=== PATIENT | female | born 1950 | race Caucasian/White ===

== ENCOUNTER 2021-12-09 21:08 | Emergency (ER) | payer MEDICARE ==
[2021-12-09] MEDS ORDERED: Sodium Chloride 0.9% 1000 ML 1,000 ML IV STA (21:15)
[2021-12-09] MEDS ORDERED: Sodium Chloride 0.9% 1000 ML 1,000 ML ONE (21:21)
[2021-12-09] MEDS ORDERED: solu-CORTEF 100MG IV ONE (21:25)
[2021-12-09] MEDS ORDERED: solu-CORTEF 100MG ONE (21:31)
[2021-12-09 21:59] LABS: Absolute Neutrophil Ct (ANC) 3.71 x10^3/uL (1.4-6.9); Basophil (Absolute #) 0.04 x10^3/uL (0-0.4); Eosinophil % 2.5 % (0.00-5.0); Eosinophil (Absolute #) 0.18 x10^3/uL (0-0.5); Hemoglobin 13.6 g/dL (12.0-16.0); Lymphocyte (Absolute #) 2.25 x10^3/uL (1.0-4.6); Mean Corpuscular Hemoglobin 31.3 pg (26-32); Mean Platelet Volume 11.8 fL (7.5-11.0); Monocyte (Absolute #) 1.07 x10^3/uL (0.0-1.3); Monocytes % 14.7 % (0.0-12.0); Neutrophil % 51.1 % (36.0-66.0); Platelet Count 157 x10^3/uL (150-450); Red Blood Count 4.35 x10^6/uL (4.1-5.4); Red Cell Distribution Width 12.5 % (11.5-14.0); White Blood Count 7.3 x10^3/uL (4.0-10.5)
[2021-12-09 22:06] LABS: Appearance CLEAR (CLEAR); Bilirubin MODERATE (NEGATIVE); Dipstick done @ ? MAIN LAB; Glucose NEGATIVE (NEGATIVE); Ketones >=160 (NEGATIVE); Nitrite NEGATIVE (NEGATIVE); Protein,Urine Dip 30 (Negative); RBC SMALL Ery/ul (0-5); Specific Gravity 1.025 (1.005-1.025); Urobilinogen 0.2 mg/dL (0-1)
[2021-12-09 22:10] LABS: Bacteria RARE /HPF (NEGATIVE); RBC 0-2 /HPF (0-2); Urine Cultured Indicated? YES
--- NOTE | 2021-12-09 22:14 | ERPHSYRPT ---
- History of Present Illness Source: patient, EMS Exam Limitations: clinical condition Patient Subjective Stated Complaint: per ems, pt has been vomiting. family told ems that pt was her normal self on tuesday but has been increasingly lethargic since. pt has not been taking her meds d/t vomiting and family says she gets like this when she does not take her steriods Triage Nursing Assessment: pt arrive per ambulance and transfers to [facility] with assist of 3. pt opens eyes to voice and answers some questions. pt oriented to person, time. respirations nonalbored with lungs cta. skin warm and dry. pupils equal and reactive. bilat upper and lower ext strength equal. pt poor historian at this time. no family with pt. Physician History: Lethargic WF in mild distress w N/V x3 days. She has a good airway and is oriented x3 but slow to respond. Pt unable to give a Hx. She received 500ml NS bolus/4mg IV Zofran in route. Pt w a good BP/Heart rate. She denies any pain, and no focal weakness observed. Timing/Duration: other (3 days) Severity: moderate Modifying Factors: Improves With: nothing Allergies/Adverse Reactions: pain medicines Allergy (Uncoded 12/09/21 22:00) pt unable to answer at this time, just states allergy to "pain medicines" Home Medications: Gabapentin [Neurontin ] 300 mg PO HS 12/09/21 [History] Hydrocortisone [Cortef] 15 mg PO DAILY 12/09/21 [History] Levothyroxine Sodium 50 Mcg [Synthroid 50 Mcg] 50 mcg PO DAILY 12/09/21 [History] Nebivolol HCl 5 MG [Bystolic 5 MG] 10 mg PO DAILY 12/09/21 [History] Omeprazole 40 mg PO DAILY 12/09/21 [History] Hx Tetanus, Diphtheria Vaccination/Date Given: (uk) Immunizations Up to Date: (uk) Travel Risk - International Travel Have you traveled outside of the country in past 3 weeks: No - Coronavirus Screening Are you exhibiting any of the following symptoms?: Yes Symptoms: Cough: New Onset, Vomiting/Diarrhea, Headaches/Body Aches/Fatigue Close contact with a COVID-19 positive Pt in past 14-21 Days: No - Vaccine Status Have you recieved a Covid-19 vaccination: No (unknown) Physical Director: Unknown - Vaccination Dates Dates if Unknown: uk - Review of Systems All Other Systems: Unable due to condition - Past Medical History Neurological History: No Pertinent History Cardiac History: Hypertension Respiratory History: No Pertinent History Endocrine Medical History: Dedrick's Disease, Hypothyroidism Musculoskeletal History: Arthritis - Social History Smoking Status: Unknown if ever smoked - Nursing Vital Signs Nursing Vital Signs: Initial Vital Signs Temperature 99.4 F 12/09/21 21:10 Pulse Rate 97 H 12/09/21 21:10 Respiratory Rate 18 12/09/21 21:10 Blood Pressure 173/67 12/09/21 21:10 O2 Sat by Pulse Oximetry 99 12/09/21 21:10 Pain Scale Pain Intensity 0 - Physical Exam SpO2: 99 - Course Nursing assessment & vital signs reviewed: Yes EKG Interpreted by Me: RATE (NSR/Rate97/Prolonged QT-QTc/Nonspecific ST-Twave changes) - CT Exams Head CT Interpretation: Tele-radiologist Report (CT head neg) Abdomen/Pelvis CT Interpretation: Tele-radiologist Report (NAD) Chest CT Interpretation: Tele-radiologist Report (Reactive adenopathy/CAD/Possible pneumonitis) Ordered Tests: Active Orders 24 hr Category Date Time Status EKG-ER Only STAT Care 12/09/21 21:15 Completed ABDOMEN AND PELVIS W/0 CONTRAS [CT] Stat Exams 12/09/21 21:49 Taken CHEST 1 VIEW (PORTABLE) Stat Exams 12/09/21 21:16 Taken CHEST WITHOUT CONTRAST [CT] Stat Exams 12/09/21 21:48 Taken HEAD WITHOUT CONTRAST [CT] Stat Exams 12/09/21 21:47 Taken ABG [ARTERIAL BLOOD GASES] Stat Lab 12/09/21 22:30 Completed AMYLASE Stat Lab 12/09/21 21:54 Completed CBC W DIFF Stat Lab 12/09/21 21:54 Completed CMP Stat Lab 12/09/21 21:54 Completed CULTURE,URINE Stat Lab 12/09/21 21:56 Received ETHYL ALCOHOL Stat Lab 12/09/21 21:54 Completed LIPASE Stat Lab 12/09/21 21:54 Completed Lactic Acid Stat Lab 12/09/21 21:43 Completed MAGNESIUM Stat Lab 12/09/21 21:54 Completed NT PRO BNP Stat Lab 12/09/21 21:54 Completed POCT GLUCOSE Stat Lab 12/09/21 22:45 Completed POCT GLUCOSE Stat Lab 12/09/21 22:47 Completed POCT GLUCOSE Stat Lab 12/09/21 23:18 Completed PROTIME WITH INR Stat Lab 12/09/21 21:54 Completed PTT Stat Lab 12/09/21 21:54 Completed T4 (Thyroxine) Stat Lab 12/09/21 21:36 Completed TROPONIN Q4H Lab 12/09/21 22:03 Completed TSH [TSH, 3RD Generation] Stat Lab 12/09/21 21:36 Completed UA W/RFX CULTURE Stat Lab 12/09/21 21:56 Completed Urine Triage Profile Stat Lab 12/09/21 21:56 Completed Medication Summary Discontinued Medications Generic Name Dose Route Start Last Admin Trade Name Freq PRN Reason Stop Dose Admin Dextrose 50 ml 12/09/21 22:48 12/09/21 22:50 Dextrose 50%-Water 50 Ml Abboject IV 12/09/21 22:49 50 ml STAT ONE Administration Dextrose Confirm 12/09/21 22:49 Dextrose 50%-Water 50 Ml Abboject Administered 12/09/21 22:50 Dose 50 ml IV .STK-MED ONE Hydrocortisone Sodium Succinate 100 mg 12/09/21 21:25 12/09/21 21:33 Hydrocortisone Sod Succinate 100 Mg/Vial Vial IV 12/09/21 21:26 100 mg STAT ONE Administration Hydrocortisone Sodium Succinate Confirm 12/09/21 21:31 Hydrocortisone Sod Succinate 100 Mg/Vial Vial Administered 12/09/21 21:32 Dose 100 mg .ROUTE .STK-MED ONE Sodium Chloride 1,000 mls @ 999 mls/hr 12/09/21 21:15 12/09/21 21:26 Sodium Chloride 0.9% 1000 Ml IV 12/09/21 22:15 999 mls/hr .Q1H1M STA Administration Sodium Chloride Confirm 12/09/21 21:21 Sodium Chloride 0.9% 1000 Ml Administered 12/09/21 21:22 Dose 1,000 mls @ ud .ROUTE .STK-MED ONE Dextrose/Sodium Chloride 1,000 mls @ 100 mls/hr 12/09/21 23:45 Dextrose 5% -0.45 Nacl 1000 Ml IV 01/08/22 23:44 .Q10H GIAN Potassium Chloride/Dextrose/Sod Cl 1,000 mls @ 100 mls/hr 12/09/21 23:45 12/09/21 23:57 D5w/0.45ns W/ 40meq Kcl 1000 Ml IV 01/08/22 23:44 100 mls/hr .Q10H GIAN Administration Potassium Chloride/Dextrose/Sod Cl Confirm 12/09/21 23:45 D5w/0.45ns W/ 40meq Kcl 1000 Ml Administered 12/09/21 23:46 Dose 1,000 mls @ ud IV .STK-MED ONE Lab/Rad Data: Laboratory Result Diagrams 12/09/21 21:54 12/09/21 21:54 Laboratory Results 12/09/21 12/09/21 12/09/21 Range/Units 23:18 22:47 22:45 WBC (4.0-10.5) x10^3/uL RBC (4.1-5.4) x10^6/uL Hgb (12.0-16.0) g/dL Hct (35-47) % MCV (78-100) fL MCH (26-32) pg MCHC (32-36) g/dL RDW (11.5-14.0) % Plt Count (150-450) x10^3/uL MPV (7.5-11.0) fL Gran % (36.0-66.0) % Immature Gran % (Auto) (0.00-0.4) % Nucleat RBC Rel Count (0.00-0.1) % Eos # (Auto) (0-0.5) x10^3/uL Immature Gran # (Auto) (0.00-0.03) x10^3u/L Absolute Lymphs (auto) (1.0-4.6) x10^3/uL Absolute Monos (auto) (0.0-1.3) x10^3/uL Absolute Nucleated RBC (0.00-0.01) x10^3u/L Lymphocytes % (24.0-44.0) % Monocytes % (0.0-12.0) % Eosinophils % (0.00-5.0) % Basophils % (0.0-0.4) % Absolute Granulocytes (1.4-6.9) x10^3/uL Basophils # (0-0.4) x10^3/uL PT (9.4-12.5) SECONDS INR (0.8-3.0) APTT (25.1-36.5) SECONDS Puncture Site pCO2 (35-45) mmHg pO2 (75-100) mmHg Base Excess (-2.0-2.0) O2 Saturation (94-100) g/dF ABG pH (7.35-7.45) ABG HCO3 (22-28) ABG O2 Sat (Measured) (95-100) % [place] Test A-a Gradient a/A Ratio Hemoglobin Carboxyhemoglobin (0.0-6.9) % THgb Methemoglobin (1.4-1.5) % Temperature C POC O2 Flow Rate % Sodium (137-145) mmol/L Potassium (3.5-5.1) mmol/L Chloride (98-107) mmol/L Carbon Dioxide (22-30) mmol/L Anion Gap (5-15) MEQ/L BUN (7-17) mg/dL Creatinine (0.52-1.04) mg/dL Estimated GFR ML/MIN Glucose (74-106) mg/dL POC Glucometer 197 H 58 L 58 L (74 to 106) mg/dL Lactic Acid (0.4-2.0) Calcium (8.4-10.2) mg/dL Magnesium (1.6-2.3) mg/dL Total Bilirubin (0.2-1.3) mg/dL AST (14-36) U/L ALT (0-35) U/L Alkaline Phosphatase (38-126) U/L Troponin I (0.000-0.034) ng/mL NT-Pro-B Natriuret Pep (0-900) pg/mL Serum Total Protein (6.3-8.2) g/dL Albumin (3.5-5.0) g/dL Amylase (30-110) U/L Lipase (23-300) U/L Thyroxine (T4) (5.53-10.96) ug/dL TSH 3rd Generation (0.47-4.68) mIU/L Urinalys Dipstick Clnc Urine Color (YELLOW) Urine Appearance (CLEAR) Urine pH (5-6) Ur Specific [place] (1.005-1.025) POC Urine Protein Conf (Negative) Urine Ketones (NEGATIVE) Urine Nitrite (NEGATIVE) Urine Bilirubin (NEGATIVE) Urine Urobilinogen (0-1) mg/dL Urine Leukocytes (NEGATIVE) Urine WBC (Auto) (0-5) /HPF Urine RBC (Auto) (0-2) /HPF U Epithel Cells (Auto) Urine Bacteria (Auto) (NEGATIVE) /HPF Urine RBC (0-5) Bassem/ul Ur Culture Indicated? Urine Glucose (NEGATIVE) mg/dL Urine Opiates Level (NEGATIVE) Ur Methadone (NEGATIVE) Urine Barbiturates (NEGATIVE) Ur Phencyclidine (PCP) (NEGATIVE) Urine Amphetamine (NEGATIVE) U Benzodiazepine Level (NEGATIVE) Urine Cocaine (NEGATIVE) Urine Marijuana (THC) (NEGATIVE) Ethyl Alcohol (0-10) mg/dL Influenza Type A Ag (NEGATIVE) Influenza Type B Ag (NEGATIVE) RSV (PCR) (Negative) SARS-CoV-2 (PCR) (NEGATIVE) 12/09/21 12/09/21 12/09/21 Range/Units 22:30 22:03 21:56 WBC (4.0-10.5) x10^3/uL RBC (4.1-5.4) x10^6/uL Hgb (12.0-16.0) g/dL Hct (35-47) % MCV (78-100) fL MCH (26-32) pg MCHC (32-36) g/dL RDW (11.5-14.0) % Plt Count (150-450) x10^3/uL MPV (7.5-11.0) fL Gran % (36.0-66.0) % Immature Gran % (Auto) (0.00-0.4) % Nucleat RBC Rel Count (0.00-0.1) % Eos # (Auto) (0-0.5) x10^3/uL Immature Gran # (Auto) (0.00-0.03) x10^3u/L Absolute Lymphs (auto) (1.0-4.6) x10^3/uL Absolute Monos (auto) (0.0-1.3) x10^3/uL Absolute Nucleated RBC (0.00-0.01) x10^3u/L Lymphocytes % (24.0-44.0) % Monocytes % (0.0-12.0) % Eosinophils % (0.00-5.0) % Basophils % (0.0-0.4) % Absolute Granulocytes (1.4-6.9) x10^3/uL Basophils # (0-0.4) x10^3/uL PT (9.4-12.5) SECONDS INR (0.8-3.0) APTT (25.1-36.5) SECONDS Puncture Site LEFT RADIAL pCO2 27 L (35-45) mmHg pO2 83 (75-100) mmHg Base Excess -11.0 L (-2.0-2.0) O2 Saturation 94.0 (94-100) g/dF ABG pH 7.31 L (7.35-7.45) ABG HCO3 13.6 L* (22-28) ABG O2 Sat (Measured) 97.1 (95-100) % [place] Test YES A-a Gradient 33 a/A Ratio 0.72 Hemoglobin 14.4 Carboxyhemoglobin 2.2 (0.0-6.9) % THgb Methemoglobin 1.0 L (1.4-1.5) % Temperature 37.0 C POC O2 Flow Rate 21 % Sodium (137-145) mmol/L Potassium 3.1 L (3.5-5.1) mmol/L Chloride (98-107) mmol/L Carbon Dioxide (22-30) mmol/L Anion Gap (5-15) MEQ/L BUN (7-17) mg/dL Creatinine (0.52-1.04) mg/dL Estimated GFR ML/MIN Glucose (74-106) mg/dL POC Glucometer (74 to 106) mg/dL Lactic Acid (0.4-2.0) Calcium (8.4-10.2) mg/dL Magnesium (1.6-2.3) mg/dL Total Bilirubin (0.2-1.3) mg/dL AST (14-36) U/L ALT (0-35) U/L Alkaline Phosphatase (38-126) U/L Troponin I 0.017 (0.000-0.034) ng/mL NT-Pro-B Natriuret Pep (0-900) pg/mL Serum Total Protein (6.3-8.2) g/dL Albumin (3.5-5.0) g/dL Amylase (30-110) U/L Lipase (23-300) U/L Thyroxine (T4) (5.53-10.96) ug/dL TSH 3rd Generation (0.47-4.68) mIU/L Urinalys Dipstick Clnc Urine Color (YELLOW) Urine Appearance (CLEAR) Urine pH (5-6) Ur Specific [place] (1.005-1.025) POC Urine Protein Conf (Negative) Urine Ketones (NEGATIVE) Urine Nitrite (NEGATIVE) Urine Bilirubin (NEGATIVE) Urine Urobilinogen (0-1) mg/dL Urine Leukocytes (NEGATIVE) Urine WBC (Auto) (0-5) /HPF Urine RBC (Auto) (0-2) /HPF U Epithel Cells (Auto) Urine Bacteria (Auto) (NEGATIVE) /HPF Urine RBC (0-5) Bassem/ul Ur Culture Indicated? Urine Glucose (NEGATIVE) mg/dL Urine Opiates Level NEGATIVE (NEGATIVE) Ur Methadone NEGATIVE (NEGATIVE) Urine Barbiturates NEGATIVE (NEGATIVE) Ur Phencyclidine (PCP) NEGATIVE (NEGATIVE) Urine Amphetamine NEGATIVE (NEGATIVE) U Benzodiazepine Level NEGATIVE (NEGATIVE) Urine Cocaine NEGATIVE (NEGATIVE) Urine Marijuana (THC) NEGATIVE (NEGATIVE) Ethyl Alcohol (0-10) mg/dL Influenza Type A Ag (NEGATIVE) Influenza Type B Ag (NEGATIVE) RSV (PCR) (Negative) SARS-CoV-2 (PCR) (NEGATIVE) 12/09/21 12/09/21 12/09/21 Range/Units 21:56 21:54 21:54 WBC (4.0-10.5) x10^3/uL RBC (4.1-5.4) x10^6/uL Hgb (12.0-16.0) g/dL Hct (35-47) % MCV (78-100) fL MCH (26-32) pg MCHC (32-36) g/dL RDW (11.5-14.0) % Plt Count (150-450) x10^3/uL MPV (7.5-11.0) fL Gran % (36.0-66.0) % Immature Gran % (Auto) (0.00-0.4) % Nucleat RBC Rel Count (0.00-0.1) % Eos # (Auto) (0-0.5) x10^3/uL Immature Gran # (Auto) (0.00-0.03) x10^3u/L Absolute Lymphs (auto) (1.0-4.6) x10^3/uL Absolute Monos (auto) (0.0-1.3) x10^3/uL Absolute Nucleated RBC (0.00-0.01) x10^3u/L Lymphocytes % (24.0-44.0) % Monocytes % (0.0-12.0) % Eosinophils % (0.00-5.0) % Basophils % (0.0-0.4) % Absolute Granulocytes (1.4-6.9) x10^3/uL Basophils # (0-0.4) x10^3/uL PT 11.6 (9.4-12.5) SECONDS INR 1.10 (0.8-3.0) APTT 28.8 (25.1-36.5) SECONDS Puncture Site pCO2 (35-45) mmHg pO2 (75-100) mmHg Base Excess (-2.0-2.0) O2 Saturation (94-100) g/dF ABG pH (7.35-7.45) ABG HCO3 (22-28) ABG O2 Sat (Measured) (95-100) % [place] Test A-a Gradient a/A Ratio Hemoglobin Carboxyhemoglobin (0.0-6.9) % THgb Methemoglobin (1.4-1.5) % Temperature C POC O2 Flow Rate % Sodium (137-145) mmol/L Potassium (3.5-5.1) mmol/L Chloride (98-107) mmol/L Carbon Dioxide (22-30) mmol/L Anion Gap (5-15) MEQ/L BUN (7-17) mg/dL Creatinine (0.52-1.04) mg/dL Estimated GFR ML/MIN Glucose (74-106) mg/dL POC Glucometer (74 to 106) mg/dL Lactic Acid (0.4-2.0) Calcium (8.4-10.2) mg/dL Magnesium (1.6-2.3) mg/dL Total Bilirubin (0.2-1.3) mg/dL AST (14-36) U/L ALT (0-35) U/L Alkaline Phosphatase (38-126) U/L Troponin I (0.000-0.034) ng/mL NT-Pro-B Natriuret Pep (0-900) pg/mL Serum Total Protein (6.3-8.2) g/dL Albumin (3.5-5.0) g/dL Amylase (30-110) U/L Lipase (23-300) U/L Thyroxine (T4) (5.53-10.96) ug/dL TSH 3rd Generation (0.47-4.68) mIU/L Urinalys Dipstick Clnc MAIN LAB Urine Color YELLOW (YELLOW) Urine Appearance CLEAR (CLEAR) Urine pH 6.0 (5-6) Ur Specific [place] 1.025 (1.005-1.025) POC Urine Protein Conf 30 (Negative) Urine Ketones >=160 (NEGATIVE) Urine Nitrite NEGATIVE (NEGATIVE) Urine Bilirubin MODERATE (NEGATIVE) Urine Urobilinogen 0.2 (0-1) mg/dL Urine Leukocytes NEGATIVE (NEGATIVE) Urine WBC (Auto) NONE (0-5) /HPF Urine RBC (Auto) 0-2 (0-2) /HPF U Epithel Cells (Auto) Not Reportable Urine Bacteria (Auto) RARE (NEGATIVE) /HPF Urine RBC SMALL (0-5) Bassem/ul Ur Culture Indicated? YES Urine Glucose NEGATIVE (NEGATIVE) mg/dL Urine Opiates Level (NEGATIVE) Ur Methadone (NEGATIVE) Urine Barbiturates (NEGATIVE) Ur Phencyclidine (PCP) (NEGATIVE) Urine Amphetamine (NEGATIVE) U Benzodiazepine Level (NEGATIVE) Urine Cocaine (NEGATIVE) Urine Marijuana (THC) (NEGATIVE) Ethyl Alcohol (0-10) mg/dL Influenza Type A Ag NEGATIVE (NEGATIVE) Influenza Type B Ag NEGATIVE (NEGATIVE) RSV (PCR) NEGATIVE (Negative) SARS-CoV-2 (PCR) POSITIVE A (NEGATIVE) 12/09/21 12/09/21 12/09/21 Range/Units 21:54 21:54 21:43 WBC 7.3 (4.0-10.5) x10^3/uL RBC 4.35 (4.1-5.4) x10^6/uL Hgb 13.6 (12.0-16.0) g/dL Hct 40.0 (35-47) % MCV 92.0 (78-100) fL MCH 31.3 (26-32) pg MCHC 34.0 (32-36) g/dL RDW 12.5 (11.5-14.0) % Plt Count 157 (150-450) x10^3/uL MPV 11.8 H (7.5-11.0) fL Gran % 51.1 (36.0-66.0) % Immature Gran % (Auto) 0.1 (0.00-0.4) % Nucleat RBC Rel Count 0.0 (0.00-0.1) % Eos # (Auto) 0.18 (0-0.5) x10^3/uL Immature Gran # (Auto) 0.01 (0.00-0.03) x10^3u/L Absolute Lymphs (auto) 2.25 (1.0-4.6) x10^3/uL Absolute Monos (auto) 1.07 (0.0-1.3) x10^3/uL Absolute Nucleated RBC 0.00 (0.00-0.01) x10^3u/L Lymphocytes % 31.0 (24.0-44.0) % Monocytes % 14.7 H (0.0-12.0) % Eosinophils % 2.5 (0.00-5.0) % Basophils % 0.6 (0.0-0.4) % Absolute Granulocytes 3.71 (1.4-6.9) x10^3/uL Basophils # 0.04 (0-0.4) x10^3/uL PT (9.4-12.5) SECONDS INR (0.8-3.0) APTT (25.1-36.5) SECONDS Puncture Site pCO2 (35-45) mmHg pO2 (75-100) mmHg Base Excess (-2.0-2.0) O2 Saturation (94-100) g/dF ABG pH (7.35-7.45) ABG HCO3 (22-28) ABG O2 Sat (Measured) (95-100) % [place] Test A-a Gradient a/A Ratio Hemoglobin Carboxyhemoglobin (0.0-6.9) % THgb Methemoglobin (1.4-1.5) % Temperature C POC O2 Flow Rate % Sodium 130 L (137-145) mmol/L Potassium 3.2 L (3.5-5.1) mmol/L Chloride 103 (98-107) mmol/L Carbon Dioxide 14 L* (22-30) mmol/L Anion Gap 17.2 H (5-15) MEQ/L BUN 19 H (7-17) mg/dL Creatinine 0.60 (0.52-1.04) mg/dL Estimated GFR > 60.0 ML/MIN Glucose 71 L (74-106) mg/dL POC Glucometer (74 to 106) mg/dL Lactic Acid 1.2 (0.4-2.0) Calcium 7.8 L (8.4-10.2) mg/dL Magnesium 1.6 (1.6-2.3) mg/dL Total Bilirubin 1.10 (0.2-1.3) mg/dL AST 39 H (14-36) U/L ALT 34 (0-35) U/L Alkaline Phosphatase 85 (38-126) U/L Troponin I (0.000-0.034) ng/mL NT-Pro-B Natriuret Pep 141 (0-900) pg/mL Serum Total Protein 6.0 L (6.3-8.2) g/dL Albumin 3.3 L (3.5-5.0) g/dL Amylase 53 (30-110) U/L Lipase 21 L (23-300) U/L Thyroxine (T4) (5.53-10.96) ug/dL TSH 3rd Generation (0.47-4.68) mIU/L Urinalys Dipstick Clnc Urine Color (YELLOW) Urine Appearance (CLEAR) Urine pH (5-6) Ur Specific [place] (1.005-1.025) POC Urine Protein Conf (Negative) Urine Ketones (NEGATIVE) Urine Nitrite (NEGATIVE) Urine Bilirubin (NEGATIVE) Urine Urobilinogen (0-1) mg/dL Urine Leukocytes (NEGATIVE) Urine WBC (Auto) (0-5) /HPF Urine RBC (Auto) (0-2) /HPF U Epithel Cells (Auto) Urine Bacteria (Auto) (NEGATIVE) /HPF Urine RBC (0-5) Bassem/ul Ur Culture Indicated? Urine Glucose (NEGATIVE) mg/dL Urine Opiates Level (NEGATIVE) Ur Methadone (NEGATIVE) Urine Barbiturates (NEGATIVE) Ur Phencyclidine (PCP) (NEGATIVE) Urine Amphetamine (NEGATIVE) U Benzodiazepine Level (NEGATIVE) Urine Cocaine (NEGATIVE) Urine Marijuana (THC) (NEGATIVE) Ethyl Alcohol < 10 (0-10) mg/dL Influenza Type A Ag (NEGATIVE) Influenza Type B Ag (NEGATIVE) RSV (PCR) (Negative) SARS-CoV-2 (PCR) (NEGATIVE) 12/09/21 Range/Units 21:36 WBC (4.0-10.5) x10^3/uL RBC (4.1-5.4) x10^6/uL Hgb (12.0-16.0) g/dL Hct (35-47) % MCV (78-100) fL MCH (26-32) pg MCHC (32-36) g/dL RDW (11.5-14.0) % Plt Count (150-450) x10^3/uL MPV (7.5-11.0) fL Gran % (36.0-66.0) % Immature Gran % (Auto) (0.00-0.4) % Nucleat RBC Rel Count (0.00-0.1) % Eos # (Auto) (0-0.5) x10^3/uL Immature Gran # (Auto) (0.00-0.03) x10^3u/L Absolute Lymphs (auto) (1.0-4.6) x10^3/uL Absolute Monos (auto) (0.0-1.3) x10^3/uL Absolute Nucleated RBC (0.00-0.01) x10^3u/L Lymphocytes % (24.0-44.0) % Monocytes % (0.0-12.0) % Eosinophils % (0.00-5.0) % Basophils % (0.0-0.4) % Absolute Granulocytes (1.4-6.9) x10^3/uL Basophils # (0-0.4) x10^3/uL PT (9.4-12.5) SECONDS INR (0.8-3.0) APTT (25.1-36.5) SECONDS Puncture Site pCO2 (35-45) mmHg pO2 (75-100) mmHg Base Excess (-2.0-2.0) O2 Saturation (94-100) g/dF ABG pH (7.35-7.45) ABG HCO3 (22-28) ABG O2 Sat (Measured) (95-100) % [place] Test A-a Gradient a/A Ratio Hemoglobin Carboxyhemoglobin (0.0-6.9) % THgb Methemoglobin (1.4-1.5) % Temperature C POC O2 Flow Rate % Sodium (137-145) mmol/L Potassium (3.5-5.1) mmol/L Chloride (98-107) mmol/L Carbon Dioxide (22-30) mmol/L Anion Gap (5-15) MEQ/L BUN (7-17) mg/dL Creatinine (0.52-1.04) mg/dL Estimated GFR ML/MIN Glucose (74-106) mg/dL POC Glucometer (74 to 106) mg/dL Lactic Acid (0.4-2.0) Calcium (8.4-10.2) mg/dL Magnesium (1.6-2.3) mg/dL Total Bilirubin (0.2-1.3) mg/dL AST (14-36) U/L ALT (0-35) U/L Alkaline Phosphatase (38-126) U/L Troponin I (0.000-0.034) ng/mL NT-Pro-B Natriuret Pep (0-900) pg/mL Serum Total Protein (6.3-8.2) g/dL Albumin (3.5-5.0) g/dL Amylase (30-110) U/L Lipase (23-300) U/L Thyroxine (T4) 11.0 H (5.53-10.96) ug/dL TSH 3rd Generation 2.620 (0.47-4.68) mIU/L Urinalys Dipstick Clnc Urine Color (YELLOW) Urine Appearance (CLEAR) Urine pH (5-6) Ur Specific [place] (1.005-1.025) POC Urine Protein Conf (Negative) Urine Ketones (NEGATIVE) Urine Nitrite (NEGATIVE) Urine Bilirubin (NEGATIVE) Urine Urobilinogen (0-1) mg/dL Urine Leukocytes (NEGATIVE) Urine WBC (Auto) (0-5) /HPF Urine RBC (Auto) (0-2) /HPF U Epithel Cells (Auto) Urine Bacteria (Auto) (NEGATIVE) /HPF Urine RBC (0-5) Bassem/ul Ur Culture Indicated? Urine Glucose (NEGATIVE) mg/dL Urine Opiates Level (NEGATIVE) Ur Methadone (NEGATIVE) Urine Barbiturates (NEGATIVE) Ur Phencyclidine (PCP) (NEGATIVE) Urine Amphetamine (NEGATIVE) U Benzodiazepine Level (NEGATIVE) Urine Cocaine (NEGATIVE) Urine Marijuana (THC) (NEGATIVE) Ethyl Alcohol (0-10) mg/dL Influenza Type A Ag (NEGATIVE) Influenza Type B Ag (NEGATIVE) RSV (PCR) (Negative) SARS-CoV-2 (PCR) (NEGATIVE) - Progress Progress: improved Progress Note: 12/09/21 23:[address] Pacheco, wants to transfer due to Dedrick's Dz 100mg IV Solucortef 1.5L NS bolus 1amp D50 due to hypoglycemia 12/09/21 23:[address] Lee 12/09/21 23:45 Informed pt's daughter, Edith, about transfer to [facility] due to CV19/Adrenal insufficiency. Related that pt was stable at this time but very ill. Pt lethargic during stay but with good airway and sats. Discussed with Dr.: Dionicio Counseled pt/family regarding: lab results, diagnosis, need for follow-up, rad results - Departure Departure Disposition: Transfer Clinical Impression: COVID-19, Hypoglycemia, Altered mental status Condition: Stable Critical Care Time: Yes Critical Care Time(excluding separately billable procedures): Critical 30-74 mins Referrals: DINA HARTLEY MD [NON-STAFF PHY W/O PRIVILEGES] - Follow up/PCP as directed
[2021-12-09 22:16] LABS: INR 1.1 (0.8-3.0); PROTIME 11.6 SECONDS (9.4-12.5); PTT 28.8 SECONDS (25.1-36.5)
[2021-12-09 22:22] LABS: Amphetamine,Urine NEGATIVE (NEGATIVE); Barbiturate,Urine NEGATIVE (NEGATIVE); Benzodiazepine,Urine NEGATIVE (NEGATIVE); Cocaine,Urine NEGATIVE (NEGATIVE); Methadone,Urine NEGATIVE (NEGATIVE); Opiate,Urine NEGATIVE (NEGATIVE); PCP,Urine NEGATIVE (NEGATIVE); THC,Urine NEGATIVE (NEGATIVE)
[2021-12-09 22:27] LABS: ALBUMIN 3.3 g/dL (3.5-5.0); ALKALINE PHOSPHATASE 85 U/L (38-126); AMYLASE 53 U/L (30-110); ANION GAP 17.2 MEQ/L (5-15); BLOOD UREA NITROGEN 19 mg/dL (7-17); CHLORIDE 103 mmol/L (98-107); Calcium 7.8 mg/dL (8.4-10.2); EST GLOMERULAR FILTRATION RATE > 60.0 ML/MIN; ETHYL ALCOHOL < 10 mg/dL (0-10); Glucose 71 mg/dL (74-106); LIPASE 21 U/L (23-300); MAGNESIUM 1.6 mg/dL (1.6-2.3); NT PRO BNP 141 pg/mL (0-900); Potassium 3.2 mmol/L (3.5-5.1); SGOT/AST 39 U/L (14-36); SGPT/ALT 34 U/L (0-35); SODIUM 130 mmol/L (137-145)
[2021-12-09 22:31] LABS: Carbon Dioxide 14 mmol/L (22-30)
[2021-12-09 22:42] LABS: INFLUENZA A NEGATIVE (NEGATIVE); INFLUENZA B NEGATIVE (NEGATIVE); RESPIRATORY SYNCTIAL VIRUS NEGATIVE (Negative)
[2021-12-09 22:42] LABS: A-aADO2 33; ABG HEMOGLOBIN 14.4; ABG POTASSIUM 3.1 (3.5-5.1); ARTERIAL BLD GAS O2 SATURATION 97.1 % (95-100); ARTERIAL BLOOD GAS FIO2 21 %; ARTERIAL BLOOD GAS PCO2 27 mmHg (35-45); ARTERIAL BLOOD GAS PO2 83 mmHg (75-100); ARTERIAL BLOOD GAS pH 7.31 (7.35-7.45); CARBOXYHEMOGLOBIN 2.2 % THgb (0.0-6.9); HCO3- 13.6 (22-28)
[2021-12-09 22:43] LABS: ABG SITE LEFT RADIAL; ALLEN TEST OK? YES
[2021-12-09 22:44] LABS: SARS-CoV-2 Xpert Express POSITIVE (NEGATIVE)
[2021-12-09] MEDS ORDERED: D50W 50 ml Abboject IV ONE ×2 (22:48→22:49)
[2021-12-09 22:49] LABS: TSH, 3RD Generation 2.62 mIU/L (0.47-4.68)
[2021-12-09] MEDS ORDERED: Dextrose 5% -0.45 NaCl 1000 ML 1,000 ML IV SCH (23:45)
[2021-12-09] MEDS ORDERED: D5w/0.45NS W/ 40MEQ KCl 1000 Ml 1,000 ML IV SCH (23:45)
[2021-12-09] MEDS ORDERED: D5w/0.45NS W/ 40MEQ KCl 1000 Ml 1,000 ML IV ONE (23:45)
[2021-12-10 00:07] VITALS: BP 141/61; PULSE 92
[2021-12-10 03:21] VITALS: O2SAT 99
--- NOTE | 2021-12-10 08:46 | XRAY ---
Indication: Altered mental status. Lethargy. Multiple contiguous axial images obtained through the head without contrast. Comparison: November 30, 2010 Normal-appearing brain parenchyma, ventricles, and bony calvarium for patient's age. Worsening significant pansinusitis with fluid leveling in both maxillary and sphenoid sinuses. Mastoid air cells are clear. Impression: Worsening pansinusitis. Remaining CT head without contrast exam is negative. Comment: Preliminary interpretation made by [facility]. Incidental pansinusitis not reported.
--- NOTE | 2021-12-10 08:51 | XRAY ---
Indication: Altered mental status. Lethargy. Multiple contiguous axial images obtained through the chest without contrast. Comparison: None Lungs inflated with minimal right middle lobe interstitial alveolar opacities without consolidation or effusion. Remaining lungs demonstrates minimal peripheral fibrosis/scarring and scattered bilateral calcified granulomas. Heart not enlarged. Mild arteriosclerotic aorta without aneurysm. Small bilateral hilar calcified nodes. No pathologic mediastinal lymphadenopathy. Mid to distal esophagus demonstrates circumferential wall thickening as seen with esophagitis. Small hiatal hernia. Bony thorax intact with minimal/mild degenerative changes throughout the spine and right total shoulder arthroplasty. CT abdomen/pelvis reported separately. Impression: 1. Right middle lobe pneumonitis. 2. Esophageal circumferential wall thickening with small hiatal hernia. Rule out reflux esophagitis. 3. Chronic findings including pulmonary fibrosis/scarring, chronic bony findings, and old granulomatous disease. Comment: Preliminary interpretation made by [facility]. No critical discrepancy.
--- NOTE | 2021-12-10 08:53 | XRAY ---
Indication: Altered mental status. Abdomen pain and lethargy. Multiple contiguous axial images obtained through the abdomen and pelvis without contrast. Comparison: None CT chest reported separately. Noncontrasted stomach and bowel loops nonobstructed with normal appendix and sigmoid diverticulosis. Previous cholecystectomy. No free fluid/air. Incidental tiny splenic calcified granulomas and empty urinary bladder with Alonso catheter in situ. Remaining liver, pancreas, spleen, adrenal glands, kidneys, ureters, and uterus are unremarkable for noncontrast exam. Mild scattered aortoiliac calcifications without AAA. Osseous structures intact with minimal/mild multilevel thoracolumbar degenerative spondylosis, 3-4 mm L4 anterolisthesis, and L4-L5 spinous process fusion hardware. Impression: 1. Colonic diverticulosis, splenic calcified granulomas, arteriosclerotic disease, and chronic bony findings. 2. Remaining CT abdomen/pelvis without contrast exam is negative. Comment: Preliminary interpretation made by [facility]. No critical discrepancy.
--- NOTE | 2021-12-10 08:55 | XRAY ---
Indication: Lethargy and vomiting. Comparison: None Portable chest demonstrates CT proven right middle lobe interstitial alveolar opacities and scattered bilateral calcified granulomas. Remaining heart and lungs unremarkable. Bony thorax intact with osteopenia, degenerative changes, and right shoulder arthroplasty.
== END 2021-12-10 00:35 | disposition short-term general hospital (02) ==
LOC: ED 21:08
DX: U07.1 COVID-19 (principal); R41.82 Altered mental status, unspecified; E16.2 Hypoglycemia, unspecified; E27.1 Primary adrenocortical insufficiency; R11.2 Nausea with vomiting, unspecified; I10 Essential (primary) hypertension; Z79.899 Other long term (current) drug therapy
CPT/HCPCS: 0241U; 36415; 36600; 51702; 70450; 71045; 71250; 74176; 80053; 80307; 81015; 82150; 82375; 82803; 82947; 83605; 83690; 83735; 83880; 84436; 84443; 84484; 85025; 85610; 85730; 87086; 93005; 96360; 96365; 96374; 99284; 99291; G0480; J1720